=== PATIENT | female | born 1980 | race Hispanic/Latino ===

== ENCOUNTER 2021-10-23 02:37 | Emergency (ER) | payer MEDICAID, SELFPAY ==
[2021-10-23 02:37] VITALS: BP 138/72; PULSE 85; RESP 20; TEMP 36.6; O2SAT 98
--- NOTE | 2021-10-23 02:40 | ECG_ITS ---
Measurements Intervals [place] Rate: 84 P: 5 ND: 150 QRS: 2 QRSD: 91 T: 21 QT: 378 QTc: 448 Interpretive Statements SINUS RHYTHM BORDERLINE T WAVE ABNORMALITY- ANTERIOR LEADS BASELINE ARTIFACT- V2 BORDERLINE ECG Electronically Signed On 10-23-2021 7:11:29 CDT by Anand Perez D.O.
--- NOTE | 2021-10-23 03:01 | PC.NURSE ---
Pt is refusing an IV at this time
--- NOTE | 2021-10-23 03:04 | ED.GENADULT ---
HPI - General Adult General Chief complaint: Arrhythmia/Palpitations Stated complaint: EPISODE OF SVT , NOW RESOLVED Time Seen by Provider: 10/23/21 02:40 History of Present Illness HPI narrative: 31-year-old female with history of SVT presented to the emergency department for evaluation of resolved SVT. Patient states she has a history of SVT which usually occurs during her menstrual cycle. Patient is currently on her menstrual cycle. Patient had been taking an unknown medication to help with her SVTs, she is not sure what the medication is but she knows she has been instructed to stop it for her pending allergy testing. Patient states that she had approximately 5 to 10 minutes of SVT. Patient was able to Valsalva herself out of it by using a modified Valsalva technique. By the time EMS arrived the SVT had resolved. Related Data Home Medications Medication Instructions Recorded Confirmed No Home Medications 10/23/21 10/23/21 Allergies Allergy/AdvReac Type Severity Reaction Status Date / Time diphenhydramine Allergy Swelling Verified 10/23/21 03:02 [From Benadryl] ibuprofen AdvReac Jittery Verified 10/23/21 03:03 Review of Systems Review of Systems: CONSTITUTIONAL: Denies fever, chills, or sweats. EYES: Denies visual changes, redness, or discharge. ENT: Denies rhinorrhea, congestion, sore throat, or otalgia. CARDIOVASCULAR: See HPI RESPIRATORY: Denies cough or dyspnea. GASTROINTESTINAL: Denies abdominal pain, nausea, vomiting, or diarrhea. GENITOURINARY: Denies dysuria or hematuria. SKIN: Denies rash or itching. MUSCULOSKELETAL: Denies back pain, joint pain, or myalgia. NEUROLOGIC: Denies headache, numbness, or weakness. Exam Narrative: APPEARANCE: Well appearing, no pain, no distress, well-nourished. HEAD: normocephalic, atraumatic. EYES: PERRLA/EOMI, conjunctivae clear. NOSE: Normal no drainage THROAT: Pharynx clear, no exudate. NECK: Supple. No adenopathy, no masses. RESPIRATORY: Airway patent, respirations nonlabored. Clear to auscultation bilaterally, no rales, rhonchi, wheezing. CARDIOVASCULAR: Regular rate and rhythm without murmurs rubs or gallops. ABDOMINAL: Soft, nontender, nondistended, normal bowel sounds MUSCULOSKELETAL: Moves all extremities. Strength/ROM intact, No edema, No calf tenderness. NEURO: Alert. Cranial nerves II through XII intact. Grossly intact SKIN: Warm, dry. Normal Color Course Course Emergency Course: Patient's potassium was replaced orally. Patient declined IV potassium. Patient was encouraged to close follow-up with her primary care physician. All question concerns were addressed. Vital Signs Vital signs: Vital Signs Temperature 98 F 10/23/21 02:37 Pulse Rate 85 10/23/21 02:37 Respiratory Rate 20 10/23/21 02:37 Blood Pressure 138/72 10/23/21 02:37 Pulse Oximetry 98 10/23/21 02:37 Oxygen Delivery Room Air 10/23/21 02:37 Temperature 98 F 10/23/21 02:37 Pulse Rate 85 10/23/21 04:31 Respiratory Rate 16 10/23/21 04:31 Blood Pressure 127/68 10/23/21 04:31 Pulse Oximetry 100 10/23/21 04:31 Oxygen Delivery Room Air 10/23/21 02:37 Medical Decision Making Vital Signs Vital Signs: Vital Signs Temperature 98 F 10/23/21 02:37 Pulse Rate 85 10/23/21 02:37 Respiratory Rate 20 10/23/21 02:37 Blood Pressure 138/72 10/23/21 02:37 Pulse Oximetry 98 10/23/21 02:37 Oxygen Delivery Room Air 10/23/21 02:37 Temperature 98 F 10/23/21 02:37 Pulse Rate 85 10/23/21 04:31 Respiratory Rate 16 10/23/21 04:31 Blood Pressure 127/68 10/23/21 04:31 Pulse Oximetry 100 10/23/21 04:31 Oxygen Delivery Room Air 10/23/21 02:37 Lab Data Lab results reviewed: Yes I reviewed the patient's lab results. Result diagrams: 10/23/21 03:03 10/23/21 03:03 Labs: Lab Results 10/23/21 10/23/21 Range/Units 03:03 03:03 WBC 7.1 (4.5-10.0) K/mm3 RBC 4.52 (4.2-5.4) M/
[2021-10-23 03:10] LABS: Basophils Percent Auto 0.4 % (0.2-1.2); Eosinophils Absolute Auto 0.3 K/mm3 (0-0.3); Eosinophils Percent Auto 4.4 % (0-4.4); Hematocrit 40.3 % (37.0-47.0); Hemoglobin 13.1 g/dL (12.0-15.0); Immature Granulocyte Absolute 0.02 K/mm3 (0.00-0.031); Immature Granulocyte Percent A 0.3 % (0-0.5); Lymphocytes Absolute Auto 2.48 K/mm3 (0.9-3.2); Lymphocytes Percent Auto 34.9 % (18.3-44.2); Mean Corpuscular HGB Conc 32.5 g/dl (32-36); Mean Corpuscular Volume 89.2 fl (80-100); Mean Platelet Volume 10.2 fl (7.4-10.4); Monocytes Absolute Auto 0.6 K/mm3 (0.1-0.6); Monocytes Percent Auto 8.3 % (2.6-8.5); Neutrophils Absolute Auto 3.7 K/mm3 (1.3-6.7); Neutrophils Percent Auto 51.7 % (45.5-73.1); Platelet Count Result 300 k/mm3 (150-375); Red Blood Count 4.52 M/mm3 (4.2-5.4); Red Cell Distribution Width 14.2 % (11.5-14.5); White Blood Count 7.1 K/mm3 (4.5-10.0)
[2021-10-23 03:27] LABS: Alanine Aminotransferase 23 U/L (6-35); Alkaline Phosphatase 89 U/L (38-126); Anion Gap 8 mmol/L (8-16); Aspartate Amino Transferase 27 U/L (14-36); Bilirubin,Total 0.3 mg/dL (0.2-1.3); Blood Urea Nitrogen 8 mg/dL (7-17); Calcium 8.6 mg/dL (8.4-10.2); Carbon Dioxide 26 mmol/L (22-30); Chloride 107 mmol/L (98-107); Estimated CRCL calculation 120 ml/min; Estimated Glomerular Filt Rate > 60; Glucose 111 mg/dL (65-110); Sodium 141 mmol/L (137-145)
[2021-10-23] MEDS: POTASSIUM CHLORIDE 20 MEQ PACKET (FOR LIQUID) 40 MEQ PO (04:06)
--- NOTE | 2021-10-23 04:11 | PC.NURSE ---
Patient stating she does not want an IV, will do oral potassium though. ERP notified, and states is OK with PO potassium for now.
[2021-10-23 04:31] VITALS: BP 127/68; PULSE 85; RESP 16; O2SAT 100
== END 2021-10-23 04:32 | disposition home or self-care (01) ==
PROVIDERS: Emergency Provider Emergency Medicine
DX: R00.2 Palpitations (principal); E87.6 Hypokalemia; R94.31 Abnormal electrocardiogram [ECG] [EKG]
CPT/HCPCS: 36415; 80053; 83735; 85025; 93005; 99283; A9270